=== PATIENT | male | born 1950 | race Caucasian/White ===

== ENCOUNTER 2021-07-11 01:36 | Day surgery (SDC) | payer OTHER, SELFPAY ==
[2021-07-04 14:44] VITALS: BMI 31.4
[2021-07-11 08:55] VITALS: BP 155/80; PULSE 56; RESP 18; TEMP 35.9; O2SAT 98; BMI 31.1
[2021-07-11] MEDS: LACTATED RINGERS 1,000 ML 150 ML IV CONT (09:20)
[2021-07-11 09:25] LABS: Glucose Point of Care 139 mg/dl (65-105)
--- NOTE | 2021-07-11 09:42 | P.CONGI_ITS ---
Assessment and Plan Assessment and plan (1) History of colon polyps: Code(s): Z86.010 - Personal history of colonic polyps Status: Acute Assessment and Plan: Patient has a prior history of colon polyps for this reason screening follow- up colonoscopy in been advised 5 year intervals. Further recommendations will be given after endoscopy. GI Consult Note Consult date/time: 07/11/21 09:42 HPI: Thomas Acuña is a 71 year old male Presents for screening colonoscopy. Patient has a prior history of colon polyps. He states his current weight appetite bowel movements are normal. Patient denies abdominal pain. He has had no bleeding. Family history is noncontributory. Review of Systems Review of Systems: All systems reviewed & are unremarkable except as noted in HPI and below PMFSH Social History Social History Smoking packs per day: 2 Smoking cigarettes per day: 40.0 Years smoked: 10 Smoking pack-years: 20.00 Smoking status: Former smoker Tobacco type: cigarettes Alcohol intake: current Drinks per week: 30 Alcohol use details: 4 drinks nightly; martini Substance use: never Substance use type: does not use Living arrangements: with family Gender identity (if verbalized by the patient): Male Sexual Orientation (if Verbalized by the Patient): Straight or Heterosexual Spiritual care concerns: No Meds Home Medications and Allergies Home Medications Medication Instructions Recorded Confirmed Type aspirin [Aspirin Low Dose] 162 mg PO DAILY 07/04/21 07/11/21 History atorvastatin 40 mg PO DAILY 07/04/21 07/11/21 History azelastine 137 mcg INTRANASAL BID 07/04/21 07/11/21 History fenofibrate nanocrystallized 145 mg PO DAILY 07/04/21 07/11/21 History glipizide 10 mg PO DAILY 07/04/21 07/11/21 History isosorbide mononitrate 30 mg PO DAILY 07/04/21 07/11/21 History losartan 25 mg PO DAILY 07/04/21 07/11/21 History metformin 1,000 mg PO DAILY 07/04/21 07/11/21 History sertraline 25 mg PO DAILY 07/04/21 07/11/21 History Allergies Allergy/AdvReac Type Severity Reaction Status Date / Time No Known Allergies Allergy Verified 07/11/21 09:03 Vital Signs Vital Signs - 24 hr 07/11/21 08:55 Temperature 96.6 F L Pulse Rate 56 L Respiratory Rate 18 Blood Pressure 155/80 H Pulse Oximetry 98 Exam Narrative: Physical exam reveals patient to be alert. Vital signs are stable. HEENT exam is unremarkable. Patient is anicteric. Lungs are clear to auscultation and percussion. Heart is without murmur or extra sounds. Abdominal exam bowel sounds are present soft nontender with no organomegaly. Digital external rectal exam is normal.
--- NOTE | 2021-07-11 09:42 | WPDANESEPPF ---
Anes - Initial Pre Proc Eval Procedure: Operation Date: 07/11/21 10:00 Proposed Procedures p Screening Colonoscopy - Sorin Zuniga MD Date/Time: 07/11/21 09:42 Surgeon: Sorin Zuniga MD Pre Op Diagnosis: hx of colon polyps Patient Data Age: 71 Gender: M Height: 1.8 m Weight: 101.3 kg Last Vital Signs Temp 96.6 F L 07/11/21 08:55 Pulse 56 L 07/11/21 08:55 Resp 18 07/11/21 08:55 BP 155/80 H 07/11/21 08:55 Pulse Ox 98 07/11/21 08:55 Allergies Allergy/AdvReac Type Severity Reaction Status Date / Time No Known Allergies Allergy Verified 07/11/21 09:03 Home Medications Medication Instructions Recorded Confirmed Type aspirin [Aspirin Low Dose] 162 mg PO DAILY 07/04/21 07/11/21 History atorvastatin 40 mg PO DAILY 07/04/21 07/11/21 History azelastine 137 mcg INTRANASAL BID 07/04/21 07/11/21 History fenofibrate nanocrystallized 145 mg PO DAILY 07/04/21 07/11/21 History glipizide 10 mg PO DAILY 07/04/21 07/11/21 History isosorbide mononitrate 30 mg PO DAILY 07/04/21 07/11/21 History losartan 25 mg PO DAILY 07/04/21 07/11/21 History metformin 1,000 mg PO DAILY 07/04/21 07/11/21 History sertraline 25 mg PO DAILY 07/04/21 07/11/21 History Laboratory Tests 07/11/21 09:09 POC Capillary Glucose 139 mg/dl H mg/dl (65-105) Patient hx anesthesia problems: none Family hx anesthesia problems: none PMFSH Social History Social History Smoking packs per day: 2 Smoking cigarettes per day: 40.0 Years smoked: 10 Smoking pack-years: 20.00 Smoking status: Former smoker Tobacco type: cigarettes Alcohol intake: current Drinks per week: 30 Alcohol use details: 4 drinks nightly; martini Substance use: never Substance use type: does not use Living arrangements: with family Gender identity (if verbalized by the patient): Male Sexual Orientation (if Verbalized by the Patient): Straight or Heterosexual Spiritual care concerns: No Anes - Eval Final PreProcedure Day of Procedure 08/27/21 09:42 Patient weight: overweight Heart: regular rate and rhythm Lungs: clear to auscultation Airway: Mallampati scale class III Neurological: alert and oriented Last oral intake: >/= 8 hours ASA classification: III Emergent: no Anesthetic plan: proceed Anesthesia type and monitoring: general GIVS and standard monitoring Informed Consent: The patient's anesthetic plan and its attendant risks and benefits were discussed with the patient/family/POA. Questions were solicited and answers provided to the satisfaction of the patient/family/POA.
[2021-07-11 10:06] VITALS: BP 89/45; PULSE 55; RESP 14; O2SAT 99
[2021-07-11 10:16] VITALS: BP 113/61; PULSE 54; RESP 18; O2SAT 100
[2021-07-11 10:36] VITALS: BP 136/70; PULSE 53; RESP 17; O2SAT 99
== END 2021-07-11 10:37 | disposition home or self-care (01) ==
PROVIDERS: PCP Emergency Medicine; Visit Provider Internal Medicine Gastroenterology
PROC: 0DJD8ZZ Inspection of Lower Intestinal Tract, Via Natural or Artificial Opening Endoscopic (ICD-10-PCS; CPT 45378; principal; 2021-07-11 10:00)
DX: Z12.11 Encounter for screening for malignant neoplasm of colon (principal); K57.30 Diverticulosis of large intestine without perforation or abscess without bleeding; K64.8 Other hemorrhoids; Z86.010 Personal history of colon polyps; Z87.891 Personal history of nicotine dependence; Z79.899 Other long term (current) drug therapy
CPT/HCPCS: G0105; 82948; J2704; J7120

== ENCOUNTER 2023-05-10 16:01 | Emergency (ER) | payer OTHER, SELFPAY ==
--- NOTE | ~2023-05-10 | XR_ITS ---
EXAM: XR knee LT min 4V DATE: 05/10/2023 17:52 HISTORY: pain in knee, no injury . COMPARISON: None available. FINDINGS: Normal mineralization. No fracture or dislocation. No lytic or blastic lesion. 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 No erosion or periosteal change. Large volume left knee joint fluid. IMPRESSION: No acute osseous finding in the left knee. Large left knee joint effusion. Reviewed, dictated and finalized at location K. IMPRESSION: No acute osseous finding in the left knee. Large left knee joint ef fusion.
[2023-05-10 16:41] VITALS: BP 129/71; PULSE 72; RESP 18; TEMP 36.9; O2SAT 99
--- NOTE | 2023-05-10 16:55 | ED.LOWEXIN ---
HPI - Extremity Injury (Lower) General Chief Complaint: Extremity Injury, Lower Stated Complaint: lt pain Time Seen by Provider: 05/10/23 16:55 Source: patient Mode of arrival: ambulatory Limitations: no limitations History of Present Illness HPI Narrative: Patient is a 72-year-old male who presents with left knee pain after stepping and mole hole in the yard this morning at 10:30 a.m.. Patient states he felt a pop and immediate pain. Patient has been able to continue working and standing on knee. Patient has not been able to elevate, ice, wrap or take anything for pain. Patient states it hurts to bear weight and to straighten leg completely. Patient reports swelling to knee. Denies any numbness tingling to foot. Related Data Home Medications Medication Instructions Recorded Confirmed aspirin 81 mg tablet,delayed 162 mg PO DAILY 07/04/21 05/10/23 release (Trang Low Dose Aspirin) atorvastatin 40 mg tablet 40 mg PO DAILY 07/04/21 05/10/23 azelastine 137 mcg (0.1 %) nasal 137 mcg intranasal BID 07/04/21 05/10/23 spray aerosol fenofibrate nanocrystallized 145 145 mg PO DAILY 07/04/21 05/10/23 mg tablet glipizide 10 mg tablet, extended 10 mg PO DAILY 07/04/21 05/10/23 release 24 hr isosorbide mononitrate 30 mg 30 mg PO DAILY 07/04/21 05/10/23 tablet,extended release 24 hr losartan 25 mg tablet 25 mg PO DAILY 07/04/21 05/10/23 metformin 1,000 mg tablet 1,000 mg PO BID 07/04/21 05/10/23 sertraline 25 mg tablet 25 mg PO DAILY 07/04/21 05/10/23 empagliflozin 10 mg tablet 10 mg PO DAILY 05/10/23 05/10/23 (Jardiance) fexofenadine 180 mg tablet 180 mg PO DAILY 05/10/23 05/10/23 Allergies Allergy/AdvReac Type Severity Reaction Status Date / Time No Known Allergies Allergy Verified 05/10/23 16:57 Review of Systems Review of Systems: All systems reviewed & are unremarkable except as noted in HPI and below Constitutional: Constitutional: Denies body ache(s), Denies chills, Denies fatigue, Denies fever(s), Denies headache(s), Denies malaise and Denies weakness Eyes: Eyes: Denies blurry vision, Denies irritation and Denies loss of vision ENT: Denies otalgia, Denies headache(s), Denies nasal discharge, Denies sinus pain and Denies sore throat Cardiovascular: Cardiovascular: Denies chest pain, Denies irregular heart rhythm and Denies dyspnea Respiratory: Respiratory: Denies dyspnea Gastrointestinal: Gastrointestinal: Denies abdominal pain, Denies melena, Denies hematochezia, Denies diarrhea, Denies nausea and Denies vomiting Musculoskeletal: Musculoskeletal: Denies back pain, Denies myalgias, Reports arthralgias and Reports joint swelling Integumentary/Breasts: Skin/Breast: Denies pruritus and Denies rash Neurologic: Denies headache(s), Denies loss of vision and Denies weakness Psychiatric: Psychiatric: Reports no additional psychiatric complaints Endocrine: Endocrine: Denies fatigue [facility] Family History Family History (System 08/08/21 @ 16:15 by Waqas Cabrera) Father Patient's father is in good health Sibling Patient's sister is in good health Patient's brother is in good health Mother Family history of malignant neoplasm Patient's mother is Social History Social History (System 08/08/21 @ 16:15 by Waqas Cabrera) Smoking packs per day: 2 Smoking cigarettes per day: 40.0 Years smoked: 10 Smoking pack-years: 20.00 Smoking status: Former smoker Tobacco type: cigarettes Smoking end date: 11/15/89 Alcohol intake: current Drinks per week: 30 Alcohol use details: 4 drinks nightly; martini Substance use: never Substance use type: does not use Living arrangements: with family Gender identity (if verbalized by the patient): Male Sexual Orientation (if Verbalized by the Patient): Straight or Heterosexual Spiritual care concerns: No Comments At time of signature, agree with nursing past medical, surgical, social and family history. There is no relev
== END 2023-05-10 18:12 | disposition home or self-care (01) ==
PROVIDERS: Emergency Provider Nurse Practitioner Family; PCP Family Medicine
DX: M25.462 Effusion, left knee (principal); S83.92XA Sprain of unspecified site of left knee, initial encounter; W17.2XXA Fall into hole, initial encounter; Z87.891 Personal history of nicotine dependence; E78.00 Pure hypercholesterolemia, unspecified; I10 Essential (primary) hypertension; I25.10 Atherosclerotic heart disease of native coronary artery without angina pectoris; Z95.5 Presence of coronary angioplasty implant and graft; I25.2 Old myocardial infarction
CPT/HCPCS: 73564; 99213; G0463

== ENCOUNTER 2025-10-31 13:00 | Outpatient (CLI) | payer OTHER, SELFPAY ==
--- NOTE | 2025-10-31 13:40 | NEURO_ITS ---
Impression: # Complains of numbness of hands. ? # Bilateral Carpal Tunnel Syndrome of severe degree, left more than right. ? # Underlying mild axonal Neuropathy. Nerve Conduction Studies ?Stim Site NR Peak (ms) P-T Amp (?V) Site1 Site2 Delta-P (ms) Dist (cm) Kj (m/s) Left Median Anti Sensory (2-3nd Digit)??? NO RESPONSE Wrist NR Wrist 2-3nd Digit 14.0 Wrist NR Wrist 2-3nd Digit 14.0 Right Median Anti Sensory (2-3nd Digit) Wrist ? 7.0 7.3 Wrist 2-3nd Digit 7.0 14.0 20 Wrist ? 7.3 8.1 Wrist 2-3nd Digit 7.0 14.0 20 Left Radial Anti Sensory (Base 1st Digit) Wrist ? 2.5 5.1 Wrist Base 1st Digit 2.5 0.0 Right Radial Anti Sensory (Base 1st Digit) Wrist ? 2.8 5.8 Wrist Base 1st Digit 2.8 0.0 Left Ulnar Anti Sensory (5th Digit) Wrist ? 3.6 4.1 Wrist 5th Digit 3.6 14.0 39 Right Ulnar Anti Sensory (5th Digit) Wrist ? 3.4 15.9 Wrist 5th Digit 3.4 14.0 41 ?Stim Site NR Onset (ms) O-P Amp (mV) Site1 Site2 Delta-0 (ms) Dist (cm) Kj (m/s) Left Median Motor (Abd Poll Brev) Wrist ? 6.6 1.7 Elbow Wrist 7.2 29.0 40 Elbow ? 13.8 1.2 Right Median Motor (Abd Poll Brev) Wrist ? 6.0 3.1 Elbow Wrist 6.9 31.0 45 Elbow ? 12.9 2.4 Left Ulnar Motor (Abd Dig Minimi) Wrist ? 3.3 1.6 A Elbow Wrist 7.2 33.0 46 A Elbow ? 10.5 0.2 B Elbow Wrist 5.5 25.0 45 B Elbow ? 8.8 0.4 Right Ulnar Motor (Abd Dig Minimi) Wrist ? 3.8 5.1 A Elbow Wrist 7.7 32.0 42 A Elbow ? 11.5 4.1 B Elbow Wrist 5.9 24.0 41 B Elbow ? 9.7 2.8 F Wave Studies ?NR F-Lat (ms) L-R F-Lat (ms) Left Median (Mrkrs) (Abd Poll Brev) ? 36.51 13.45 Right Median (Mrkrs) (Abd Poll Brev) ? 23.06 13.45 Left Ulnar (Mrkrs) (Abd Dig Min) ? 37.03 1.12 Right Ulnar (Mrkrs) (Abd Dig Min) ? 35.91 1.12 Electromyography ?Side Muscle Nerve Root Ins Act Fibs Amp Dur Recrt Comment Right 1stDorInt Ulnar C8-T1 Nml Nml Nml Nml Nml Left 1stDorInt Ulnar C8-T1 Nml Nml Nml Nml Nml Right ABD Dig Min Ulnar C8-T1 Nml Nml Nml Nml Nml Left ABD Dig Min Ulnar C8-T1 Nml Nml Nml Nml Nml Left Abd Poll Brev Median C8-T1 Nml Nml Decr >12ms +1 Right Abd Poll Brev Median C8-T1 Nml Nml Decr >12ms +1 Right Abd Poll Long Radial (Post Int) C7-8 Nml Nml Nml Nml Nml Left Abd Poll Long Radial (Post Int) C7-8 Nml Nml Nml Nml Nml Left BrachioRad Radial C5-6 Nml Nml Nml Nml Nml Right BrachioRad Radial C5-6 Nml Nml Nml Nml Nml Right Ext Digitorum Radial (Post Int) C7-8 Nml Nml Nml Nml Nml Left Ext Digitorum Radial (Post Int) C7-8 Nml Nml Nml Nml Nml Left Ext Indicis Radial (Post Int) C7-8 Nml Nml Nml Nml Nml Right Ext Indicis Radial (Post Int) C7-8 Nml Nml Nml Nml Nml Left FlexPolLong Median (Ant Int) C7-8 Nml Nml Nml Nml Nml Right FlexPolLong Median (Ant Int) C7-8 Nml Nml Nml Nml Nml Right PronatorTeres Median C6-7 Nml Nml Nml Nml Nml Left PronatorTeres Median C6-7 Nml Nml Nml Nml Nml
--- OUTSIDE RECORDS SUMMARY | 2025-10-31 14:57 | XMS_ITS | Clinical Summary ---
Author Organization [facility] Address [facility] [place] [address] Care Team Providers Care Water Taxi Operator Name Role Phone Jay Livingston MD Unavailable Sorin Goode OD Unavailable [phone] Sorin Zuniga MD Unavailable [phone] Thomas Cota MD Primary Care Provider [phone] Allergies No known active allergies Medications ASPIRIN 81 OR Take 1 tablet by mouth daily. 01/22/20 16 Active furosemide (LASIX) 20 MG tablet Take 1 tablet (20 mg total) by mouth daily. 30 tablet 10/12/20 23 Active Blood Glucose Monitoring Suppl (ONE TOUCH ULTRA 2) w/Device KitIndications:Di abetes mellitus ([facility]) Use to check blood sugar once per day 1 kit 11/28/19 25 Active montelukast (SINGULAIR) 10 MG tabletIndications :Allergy, subsequent encounter,Seasona l allergies TAKE 1 TABLET BY MOUTH EVERYDAY AT BEDTIME 90 tablet 1 05/25/20 25 Active metFORMIN (GLUCOPHAGE) 1000 MG tabletIndications :Type 2 diabetes mellitus with hyperglycemia, without long-term current use of insulin ([facility]) TAKE 1 TABLET BY MOUTH TWICE A DAY WITH MEALS 180 tablet 1 06/04/20 25 Active sertraline (ZOLOFT) 25 MG tabletIndications :Mild episode of recurrent major depressive disorder TAKE 1 TABLET BY MOUTH EVERY DAY IN THE MORNING 90 tablet 1 06/18/20 25 Active fenofibrate (TRICOR) 145 MG tabletIndications :Mixed hyperlipidemia TAKE 1 TABLET BY MOUTH EVERY DAY 90 tablet 1 06/22/20 25 Active atorvastatin (LIPITOR) 80 MG tabletIndications :Mixed hyperlipidemia TAKE 1/2 TABLET BY MOUTH NIGHTLY AT BEDTIME 45 tablet 1 06/22/20 25 Active fexofenadine (GENIA) 180 MG tabletIndications :Seasonal allergies TAKE 1 TABLET BY MOUTH EVERY DAY 90 tablet 1 07/26/20 25 Active empagliflozin (JARDIANCE) 25 MG tabletIndications :Type 2 diabetes mellitus with hyperglycemia, without long-term current use of insulin ([facility]) Take 1 tablet (25 mg total) by mouth daily. 90 tablet 1 07/30/20 25 Active traMADol (ULTRAM) 50 MG tablet Take 1 tablet (50 mg total) by mouth every 6 (six) hours as needed for Pain. Active Lancets MiscIndications:D iabetes mellitus ([facility]) Use to check blood sugar once per day 100 each 1 08/20/20 25 Active nitroglycerin (NITROSTAT) 0.[address] ONE TABLET UNDER TONGUE EVERY FIVE MINS NEEDED FOR CHEST PAIN. MAX 3 DOSES, THEN CALL 911 75 tablet 1 08/23/20 25 Active losartan (COZAAR) 25 MG tablet TAKE 1 TABLET BY MOUTH EVERY DAY 90 tablet 1 08/31/20 25 Active ONETOUCH ULTRA test stripIndications: Type 2 diabetes mellitus with hyperglycemia, without long-term current use of insulin ([facility]) USE TO CHECK BLOOD SUGAR ONCE PER DAY 100 strip 1 09/10/20 25 Active glipiZIDE XL (GLUCOTROL XL) 10 MG 24 hr tabletIndications :Type 2 diabetes mellitus with hyperglycemia, without long-term current use of insulin ([facility]) TAKE 1 TABLET BY MOUTH DAILY WITH BREAKFAST (DO NOT BREAK OR CRUSH TABLET) 90 tablet 1 09/19/20 25 Active isosorbide mononitrate ER (IMDUR) 30 MG 24 hr tabletIndications :Atherosclerotic heart disease of north fork coronary artery without angina pectoris TAKE 1 TABLET BY MOUTH 2 TIMES A DAY. 180 tablet 2 09/19/20 25 Active HYDROcodone-aceta minophen (NORCO) 5-325 MG tabletIndications :Acute Pain < 7 Day Supply Take 1 tablet by mouth every 6 (six) hours as needed for Pain. Indications: Acute Pain < 7 Day Supply 28 tablet 10/24/20 25 Active azelastine 0.1 % nasal sprayIndications: Seasonal allergies SPRAY 1 SPRAY INTO EACH NOSTRIL 2 (TWO) TIMES DAILY DIRECTED 90 mL 1 10/24/20 25 Active azelastine 0.1 % nasal sprayIndications: Seasonal allergies SPRAY 1 SPRAY INTO EACH NOSTRIL 2 (TWO) TIMES DAILY DIRECTED 30 mL 1 10/01/20 25 2024 Discontinued HYDROcodone-aceta minophen (NORCO) 5-325 MG tabletIndications :Acute Pain < 7 Day Supply Take 1 tablet by mouth every 6 (six) hours as needed for Pain. Indications: Acute Pain < 7 Day Supply 28 tablet 10/22/20 25 2024 Discontinued(R eorder) Active Problems Problem Noted Date Diagnosed Date Anxiety state 05/28/2025 Cataract 05/28/2025 Malignant neoplasm of skin 05/28/2025 Postsurgical percutaneous tr ansluminal coronary angioplasty status 05/28/2025 Vitamin D deficiency 05/28/2025 Impingement syndrome of right shoulder Assessment & Plan (09/13/2022 3:46 PM CDT): We discussed the risks benefits and alternatives. All questions are answered. Continue with formal physical therapy. Steroid injected today. Patient does have an MRI that has already been ordered. If no significant improvement with the steroid injection we can certainly get the MRI. We discussed the risks at 72 years old if he did have a rotator cuff tear and wanted to proceed with surgical intervention. Patient states that he is very active and wants to continue. Follow-up in 6 weeks if no improvement. Shoulder pain, right 08/26/2022 Mild episode of recurrent major depressive disor diogo 02/22/2019 Assessment & Plan (02/22/2019 8:12 PM CDT): Doing well on present dosing of sertraline. Continue current treatment, reevaluate at follow-up. Coronary artery disease invo lving north fork coronary artery of north fork heart without angina pectoris 01/15/2019 Assessment & Plan (09/13/2022 3:44 PM CDT): Therefore we would like to avoid nonsteroidal anti-inflammatories Assessment & Plan (02/22/2019 8:06 PM CDT): Patient pleased with new cardiovascular provider. Presently without any chest discomfort or anginal symptoms. Regular follow-up scheduled. No change to present treatment. Mixed hyperlipidemia 03/04/2018 Assessment & Plan (02/22/2019 8:11 PM CDT): Check fasting lipid profile today, patient tolerating current dosing of atorvastatin and fenofibrate, adjust accordingly. Arthritis of low back 02/22/2018 Class 1 obesity due to exces s calories with serious comorbidity and body mass index (BMI) of 33.0 to 33.9 in adult 02/22/2018 Type 2 diabetes mellitus wit h hyperglycemia, without long-term current use of insulin 02/22/2018 Overview (11/22/2018): Transitioned From: Diabetes mellitus, type II Assessment & Plan (09/13/2022 3:45 PM CDT): Does realize that his blood sugars will elevate for a day or 2 after a steroid injection Assessment & Plan (02/22/2019 8:11 PM CDT): Improved diabetic control on current as well as exercise routine. Encourage patient to persist with this, as he is in a good range at this time. Recheck hemoglobin A1c in 6 months. Will obtain diabetic foot exam with next visit, as well as urine microalbumin. Patient given routine eye exam screening for diabetic retinopathy in the next month. Referral placed. Essential hypertension 02/22/2018 Assessment & Plan (02/22/2019 8:13 PM CDT): Borderline controlled. 1) Medication: continue current medication regimen unchanged, encouraged home monitoring, call for persistent elevations at or above 130/85. 2) Regular aerobic exercise 3) Recheck in 6 months, sooner should new symptoms or problems arise. Seasonal allergies 02/22/2018 Assessment & Plan (02/22/2019 8:12 PM CDT): Symptoms suspicious for vasomotor rhinitis-patient has a history of rhinitis medicamentosa with chronic use of Afrin remotely. Will trial Atrovent nasal spray to see if he gets improvement. He has used [id number] nasal corticosteroid sprays without success. Lumbar stenosis 01/02/2015 Resolved Problems Problem Noted Date Diagnosed Date Resolved Date Acute left-sided low back pa in with left-sided sciatica 10/17/2020 04/01/2021 Bradycardia 06/14/2019 04/13/2020 Need for pneumococcal vaccine 05/31/2018 11/22/2018 Arteriosclerotic cardiovascular disease 02/22/2018 05/08/2019 Overview (11/22/2018): Description: Юлия Mcarthur MD - q6m follow-ups Assessment & Plan (02/22/2019 8:07 PM CDT): See coronary artery disease, above. Medication management 02/22/20182021 Assessment & Plan (02/22/2019 8:13 PM CDT): Stable, lab work reviewed from November, for repeat testing in 3 months. Wears reading eyeglasses 02/22/2018 Myositis 10/28/2016 04/01/2021 Overview (11/22/2018): Overview: Simvastatin-induced myositis Edema of lower extremity 01/22/2016 Overview (11/22/2018): Overview: Bilateral lower extremity edema Presence of stent in coronary artery 01/22/2016 09/14/2023 Overview (04/01/2021): Overview: H/O heart artery stent H/O heart artery stent Lumbar disc herniation 01/02/201504/01 Encounters Date Type Department Care Team Description 10/31/2025 Daljit Message Enc [facility] Family & Internal Medicine [address] [address] Daljit [facility] Provider Completion of Needed Lab 10/31/2025 Patient Outreach [facility] Family & Internal [address] [phone] Lyndsay Montaño MA Other ([facility]) 10/21/2025 MyChart Message Enc [facility] Internal [address] [phone] Thomas Cota MD Update 09/04/2025 Scan MG HEALTH INFO SRVCS Scanned, Doc [facility] 08/15/2025 Scan MG HEALTH INFO SRVCS Scanned, Doc Med Group 08/13/2025 12:32 PM CDT - 08/13/2025 11:59 PM CDT Hospital Encounter [facility] Laboratory [address] [place], [place] [phone] Thomas Cota MD Discharge Disposition: Home or Self Care (Routine Discharge) 08/13/2025 7:30 AM CDT Laboratory Only [facility] Internal [address] [phone] Thomas Cota MD 08/13/2025 Results Follow-Up [facility] Internal [address] [phone] Thomsa Cota MD HEMOGLOBIN, GLYCOSYLATED 08/13/2025 Travel 08/07/2025 8:45 AM CDT Office Visit [facility], [address] [address] Raiza Hayes, ANP- Coronary Artery Disease 08/07/2025 MyChart Message Enc [facility] Internal [address] [phone] Daljit [facility] Provider lab appointment 08/07/2025 Travel from Last 3 Months Immunizations Immunization Administration Dates Next Due Fluzone High Dose (IIV, trivalent, 0.5mL) 2024,08/17/2024 Fluzone High Dose - >Age 65 (Prefilled Syringe) 10/02/2021,10/02/2020 Influenza Adult (Generic) 08/11/2023,09/14/2022 PFIZER COVID-19 (ORIGINAL FO RMULATION, PURPLE CAP) mRNA, LNP-S, PF, 30 MCG/0.3 ML DOSE 01/28/2021,01/07/2021 PFIZER COVID-19 BIVALENT (12 +) mRNA, LNP-S, PF, 30 MCG/0.3 ML DOSE 09/14/2022 Pneumococcal (Generic) 06/18/2008 Pneumococcal (Pneumovax 23) 08/29/2019, 8 Pneumococcal (Prevnar 13) 10/15/2015 Pneumococcal (Prevnar 20) 08/11/2023 Shingrix 07/09/2025,05/10/2025 Td, Adsorbed, Preservative F ree, Adult Use, Lf Unspecified 03/22/2007 Tdap (Generic) 05/10/2025 Family History Medical History Relation Comments CABG Father Stroke Maternal Grandfather No Known Problems Maternal Grandmother No Known Problems Mother No Known Problems Paternal Grandfather Heart Attack Paternal Grandmother Heart Sister 1 heart stent No Known Problems Sister 2 No Known Problems Sister 3 No Known Problems Sister 4 Relation Status Comments Father (Age 92) Maternal Grandfather (Age 63) Maternal Grandmother (Age 93) Mother (Age 90) Paternal Grandfather (Age 93) Paternal Grandmother (Age 63) Sister 1 Alive Sister 2 Alive Sister 3 Alive Sister 4 Alive Social History Tobacco Use Types Packs/Day Years Used Date Smoking Tobacco: Former Cigarettes 1.5 15 0 11/15/1970 - 11/15/1985 Pipe Cigars Passive Smoke Exposure: Past Smokeless Tobacco: Never Tobacco Cessation:Counseling Given: No Comments:Former, Quit 1985 Alcohol Use Standard Drinks/Week Comments Yes 0 (1 standard drink = 0.6 oz pure alcohol) drinks daily, mixed drinks and wine AUDIT-C Answer Date Recorded Frequency of Alcohol Consumption 4 or more times a week 01/03/2019 Average Number of Drinks Not on file 019 Frequency of Binge Drinking Not on file 12/16 PHQ-2 Answer Date Recorded Patient Health Questionnaire-2 Score 0 04/08/2023 Education Answer Date Recorded What is the highest level of school you have completed or the highest degree you have received? Bachelor's degree (e.g., BA, AB, BS) 11/22/2018 Sex and Gender Information Value Date Recorded Sex Assigned at Male 01/30/2025 10:20 AM CDT Legal Sex Male 8:41 PM CDT Gender Identity Male 05/28/2025 8:36 AM CDT Sexual Orientation Not on file Occupation Industry Job Start Date Job End Date Not on file Not on file Not on file Not on file Last Filed Vital Signs Vital Sign Reading Time Taken Comments Blood Pressure 138/78 08/07/2025 8:38 AM CDT Pulse 68 08/07/2025 8:38 AM CDT Temperature 36.3 C (97.3 F) 05/28/2025 8:33 AM CDT Respiratory Rate 16 05/28/2025 8:33 AM CDT Oxygen Saturation 99% 08/07/2025 8:38 AM CDT Inhaled Oxygen Concentration - - Weight 95.7 kg (211 lb) 08/07/2025 8:38 AM CDT Height 177.8 cm (5' 10) 08/07/2025 8:38 AM CDT Body Mass Index 30.28 08/07/2025 8:38 AM CDT Plan of Treatment Upcoming Encounters Date Type Department Care Team (Late st Contact Info) Description 11/29/2025 9:20 AM PLANT ENGINEER Office Visit [facility] Family & Internal Medicine [address] [phone] Thomas Cota MD [address] [place] [address] 02/19/2026 9:45 AM CDT Office Visit [facility], [facility] [address] [place], [place] [address] Jay Livingston MD [facility]. [facility] [address] [place], [place] [phone] Health Maintenance Due Date Last Done Comments Kidney Health Evaluation 1950 Annual Medicare Wellness Visit 2013 RSV Immunization or 60+ Years (1 - 1-dose 75+ series) 2023 PHQ-2 (Physician [place]) 11/15/2024 Lipid Panel 11/27/2025 11/27/2024, 09/16, 10/05/2022, Additional history exists Hemoglobin A1C 02/10/2026 08/13/2025, 05/15, 11/27/2024, Additional history exists COVID-19 Vaccine ( season) 2026 08/15/2025, 08/17/2024, 08/26/2023, Additional history exists Diabetes: Retinopathy Eye Exam 06/22/2026 06/22/2025, 12/15/2022, 07/04/2021, Additional history exists DTaP, Tdap and Td Vaccines (2 - Td or Tdap) 05/10/2035 05/10/2025, 03/22/2007 Hepatitis C Completed 08/29/2019 Colorectal Cancer Screening Colonoscopy (10 Years) Discontinued 07/11/2021, 11/15/2014, 08/25/2013 Pneumococcal Vaccine: 50+ Years Completed 08/11/2023, 08/29/2019, 05/31/2018, Additional history exists Zoster Vaccines Completed 07/09/2025, 05/10/2025 Influenza Adult Completed 08/15/2025, 01/2024, 08/11/2023, Additional history exists Hepatitis A Vaccines Aged Out No long er eligible based on patient's age to complete this topic Meningococcal B Vaccine Aged Out No l onger eligible based on patient's age to complete this topic Meningococcal Vaccine Aged Out No sara vernon eligible based on patient's age to complete this topic RSV Immunizations Under 20 Months Aged Out No longer eligible based on patient's age to complete this topic Procedures Procedure Name Priority Date/Time Associated Diagnosis Comments COLLECTION VENOUS BLOOD VENIPUNCTURE Routine 08/13/2025 7:38 AM CDT Type 2 diabetes mellitus with hyperglycemia, without long-term current use of insulin ([facility]) HC HEMOGLOBIN FRACT QN Routine 08/13/2025 7:34 AM CDT Type 2 diabetes mellitus with hyperglycemia, without long-term current use of insulin ([facility] HHS/HCC) DIABETIC RETINOPATHY EXAM (NEGATIVE)(SCAN ORDER) Routine 06/22/2025 LIPID PANEL Routine 11/27/2024 11:00 AM PLANT ENGINEER Mixed hyperlipidemia COLONOSCOPY GENERIC (SCAN ORDER) 07/11/2021 HEPATITIS C ANTIBODY Routine 08/29/2019 8:45 AM CDT Need for hepatitis C screening test from Last 3 Months or Most Recently Relevant to Health Maintenance Results * (ABNORMAL) HEMOGLOBIN, GLYCOSYLATED (08/13/2025 7:34 AM CDT) HGB A1C 7.1(H) <5.7 % 08/13/2025 1:14 PM CDT [facility] Comment: INCREASED RISK OF DIABETES <5.7% NON-DIABETES 5.7-6.4% INCREASED RISK FOR FUTURE DIABETES > OR = 6.5 CONSISTENT WITH DIABETES STANDARDS OF MEDICAL CARE IN DIABETES-2010 DIABETES CARE, 33(SUPP 1): S1-S61,2010 ESTIMATED AVG GLUCOSE 157 mg/dL 08/13/2025 1:14 PM CDT [facility] 08/13/2025 7:34 AM CDT Thomas Cota MD LABORATORY Final Resul t Performing Organization Address City/[facility]/ZIP Co de Phone Number [facility] [address] [place] [address], * DIABETIC RETINOPATHY EXAM (NEGATIVE) (06/22/2025) us [facility] Scanned SCANNING Final Resu lt [facility] ONBASE * LIPID PANEL (11/27/2024 11:00 AM PLANT ENGINEER) CHOLESTEROL 142 <200.0 MG/DL 11/27/2024 2:05 PM PLANT ENGINEER [facility] TRIGLYCERIDES 47 <150 MG/DL 11/27/2024 2:05 PM [facility] HDL 73 >40.0 MG/DL 11/27/2024 2:05 PM [facility] LDL (CALCULATED) 60 <100 MG/DL 11/27/19 25 2:05 PM [facility] NON HDL CHOLESTEROL 69 <130 MG/DL 11/27 2:05 PM [facility] CHOL/HDL RATIO 1.9 0.0 - 4.5 11/27/2024 2:05 PM [facility] VLDL CALCULATION 9 5 - 55 MG/DL 11/27/2024 2:05 PM [facility] LIPID INTERPRETATION 11/27/2024 2:05 PM [facility] Comment: NIH CONCENSUS REPORT RECOMMENDATIONS: ADULT CHILD LOW RISK: CHOLESTEROL <200 <170 TRIGLYCERIDE <150 --- HDL >=60 --- LDL <100 <110 BORDERLINE: CHOLESTEROL 200-239 170-199 TRIGLYCERIDE 150-199 --- HDL 40-59 --- LDL 100-159 110-129 HIGH RISK: CHOLESTEROL >=240 >=200 TRIGLYCERIDE >=200 --- HDL <40 --- LDL >=160 >=130 11/27/2024 11:0 0 AM PLANT ENGINEER us Thomas Cota MD LABORATORY Final Resul t [facility] [address] [place] [address], * COLONOSCOPY GENERIC (07/11/2021) 07/11/2021 Narrative 07/11/2021 Ordered by an unspecified provider. us Documents Scanned SCANNING Final Result * HEPATITIS C ANTIBODY (08/29/2019 8:45 AM CDT) HEPATITIS C AB NON-REACT KANU NON-REACT KANU [facility] SIGNAL TO CUTOFF 0.11 <1.00 [facility] Comment: HCV antibody was non-reactive. There is no laboratory evidence of HCV infection. In most cases, no further action is required. However, if recent HCV exposure is suspected, a test for HCV RNA (test code 84580) is suggested. For additional information please refer to http://education.[employer]/faq/JQS06n8 (This link is being provided for informational/ educational purposes only.) 08/29/2019 8:45 AM CDT 08/30/2019 5:14 AM CDT Narrative Resulting Agency Comment Performing Organization Information: Site ID: [id number] Name: [facility] Address: [address] [place] [address] [place] [address] Director: Mukesh Henriquez D.O., MPH Oneal Chance MD LABORATORY Final Res ult [facility] from Last 3 Months or Most Recently Relevant to Health Maintenance Insurance [facility] ESSENCE Care Teams Water Taxi Operator Relationship Specialty [place] [address] [place] [address] PCP - General FAMILY PRACTICE 12/04/21 Jay Livingston MD [facility] [address] [place] [address] [place] Terminologist INTERVENTIONAL CARDIOLOGY 12/22/18 Sorin Goode OD [address] [place] [address] Advanced Practice Provider Bag Presser 04/01/21 Sorin Zuniga MD [address] [place] [address] Consulting Physician GASTROENTEROLOGY 04/01/21
--- OUTSIDE RECORDS SUMMARY | 2025-10-31 14:57 | XMS_ITS | Encounter Summary ---
Author Organization [facility] Address [facility] [place] [address] Care Team Providers Care Deoiling Machine Operator Name Role Phone Oneal Chance MD Primary Care Provider [phone] Jay Livingston MD Unavailable Sorin Goode OD Unavailable [phone] Sorin Zuniga MD Unavailable [phone] Thomas Cota MD Primary Care Provider [phone] Encounter Details Date Type Department Care Team (Late st Contact Info) Description 04/01/2021 MyChart Message Enc [facility] Family & Internal Medicine [address] [phone] Oneal Chance MD [address] [address] RE:Glipizide in place of glyburide Social History Tobacco Use Types Packs/Day Years Used Date Smoking Tobacco: Former Cigarettes Q uit: 1985 Smokeless Tobacco: Never Alcohol Use Standard Drinks/Week Comments Yes 0 (1 standard drink = 0.6 oz pur e alcohol) AUDIT-C Answer Date Recorded Frequency of Alcohol Consumption 4 or more times a week 01/03/2019 Average Number of Drinks Not on file 019 Frequency of Binge Drinking Not on file 12/16 PHQ-2 Answer Date Recorded PHQ-2 Score - If the patient scores above 3, please move on to questions 3-9 0 04/01/2021 Education Answer Date Recorded What is the [...] file Not on file Not on file COVID-19 Exposure Response Date Recorded In the last month, have you been in contact with someone who was confirmed or suspected to have Coronavirus / COVID-19? No / Unsure 04/01/2021 7:47 AM CDT documented as of this encounter Plan of Treatment Upcoming Encounters Date Type Department Care Team (Late st Contact Info) Description 11/29/2025 9:20 AM ACTIVITY SPECIALIST Office Visit [facility] Medical Group Family & Internal Medicine [address] [phone] Thomas Cota MD [address] [place] [phone] 02/19/2026 9:45 AM CDT [facility] [address] [place], [place] [phone] Jay Livingston MD [facility] [address] [place], [place] [phone] documented as of this encounter Visit Diagnoses Not on filedocumented in this encounter Additional Health Concerns Assessment Noted Time PHQ-9 Depression Total Score: 0 09/25/20 20 2:50 PM ACTIVITY SPECIALIST documented as of this encounter Care Teams Deoiling Machine Operator Relationship Specialty Start Date End Date Oneal Chance MD PCP - General INTERNAL MEDICINE 11/22/18 12/03/21 [place] [address] [place] [address] PCP - General FAMILY PRACTICE 12/04/21 Jay Livingston MD [facility] [address] [place] [address] [place] [employer] Drain Pipe Layer INTERVENTIONAL CARDIOLOGY 12/22/18 Sorin Goode OD [address] [place] [address] Advanced Practice Provider Toggler 04/01/21 Sorin Zuniga MD [address] [place] [address] Consulting Physician GASTROENTEROLOGY 04/01/21 documented as of this encounter
--- OUTSIDE RECORDS SUMMARY | 2025-10-31 14:57 | XMS_ITS | Encounter Summary ---
Author Organization [facility] Address [address] [place] [address] Care Team Providers Care Environmental Quality Analyst Name Role Phone Jay Livingston MD Unavailable Sorin Goode OD Unavailable [phone] Sorin Zuniga MD Unavailable [phone] Thomas Cota MD Primary Care Provider [phone] Reason for Visit * Reason Onset Date Comments Other 10/31/2025 [facility] Encounter Details Date Type Department Care Team (Late st Contact Info) Description 10/31/2025 Patient Outreach [facility] Medical Group Family & Internal Medicine [address] [address] Lyndsay Montaño MA Other ([facility]) Social History Tobacco Use Types Packs/Day Years Used Date Smoking Tobacco: Former Cigarettes 1.5 15 0 11/15/1970 - 11/15/1985 Pipe Cigars Passive Smoke Exposure: Past Smokeless Tobacco: Never Comments:Former, Quit 1985 Alcohol Use Standard Drinks/Week [...] file Not on file Not on file documented as of this encounter Plan of Treatment Upcoming Encounters Date Type Department Care Team (Late st Contact Info) Description 11/29/2025 9:20 AM DETAIL TECHNICIAN Office Visit [facility] Medical Group Family & Internal Medicine [facility] [address] [place] [address] [place] [address] [place], [place] [id number] 02/19/2026 9:45 AM CDT Office Visit [facility], [facility] [address] [place] [address] Jay Livingston MD [facility]. [facility] [address] [place], [place] [address] Scheduled Orders Name Type Priority Associated Diagnoses Orde r Schedule ALBUMIN/CREATININE RATIO, RANDOM URINE Lab Routine Type 2 diabetes mellitus with hyperglycemia, without long-term current use of insulin ([facility]) Expected: 10/31/2025, Expires: 10/31/2026 documented as of this encounter Visit Diagnoses Diagnosis Type 2 diabetes mellitus with hyperglycemia, without long-term current use of insulin ([facility])- Primary documented in this encounter Additional Health Concerns Assessment Noted Time PHQ-9 Depression Total Score: 2 01/07/20 22 8:25 AM DETAIL TECHNICIAN documented as of this encounter Care Teams Environmental Quality Analyst Relationship Specialty [place] [address] [place] [address] PCP - General FAMILY PRACTICE 12/04/21 Jay Livingston MD [facility] [address] [place] [address] [place] [employer] Furniture Sales INTERVENTIONAL CARDIOLOGY 12/22/18 Sorin Goode OD [address] [place] [address] Advanced Practice Provider First Responder 04/01/21 Sorin Zuniga MD [address] [place] [address] Consulting Physician GASTROENTEROLOGY 04/01/21 documented as of this encounter
--- OUTSIDE RECORDS SUMMARY | 2025-10-31 14:57 | XMS_ITS | Clinical Summary ---
Author Organization [facility] [address] [facility] 162 Address [address] [facility] 162 [place] [address] Care Team Providers Care Elevator Attendant Name Role Phone Oneal Chance MD Primary Care Provider + Allergies No known active allergies Medications aspirin (ASPIR-81) 81 mg tablet take 1 Tablet by oral route every day 0 0 01/22/20 16 Active losartan (COZAAR) 50 mg tablet take 1 tablet by oral route every day 0 0 01/22/20 16 Active metFORMIN (GLUCOPHAGE) 1,000 mg tablet take 1 tablet by oral route 2 times every day with morning and evening meals 0 0 01/22/20 16 Active atorvastatin (LIPITOR) 40 mg tablet TAKE ONE TABLET BY MOUTH ONCE DAILY 90 tablet 3 12/01/19 18 Active fluticasone (FLONASE) 50 mcg/actuation nasal spray Administer 1 spray into each nostril daily. Active nitroglycerin (NITROSTAT) 0.[address] 1 tablet (0.4 mg total) under the tongue every 5 (five) minutes as needed for chest pain. 60 tablet 3 12/10/19 18 Active isosorbide mononitrate ER (IMDUR) 30 mg 24 hr tablet Take 1 tablet (30 mg total) by mouth daily. 30 tablet 11 01/29/20 18 Active MICROLET LANCET misc 0 18 Active CONTOUR NEXT STRIPS strip 03/01/20 18 Active glyBURIDE (DIABETA) 2.5 mg tablet Take 2.5 mg by mouth daily with breakfast. Active fenofibrate nanocrystallized (TRICOR,TRIGLIDE) 145 mg tablet Take 1 tablet (145 mg total) by mouth daily. 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 Presence of stent in coronary artery 01/22/2016 Overview (02/19/2017): H/O heart artery stent Coronary arteriosclerosis in [place] artery 01/21 Overview (02/19/2017): Coronary artery disease involving [place] coronary artery of [place] heart with unstable angina pectoris Edema of lower extremity 01/22/2016 Overview (02/19/2017): Bilateral lower extremity edema Family History Medical History Relation Name Comments Other Father 2 Alive and well; Other Mother 2 Unknown; Cause of : Unknown Relation Name Status Comments Father 1 Alive Father 2 Mother 1 (Age 90) Mother 2 Social History Tobacco Use Types Packs/Day Years Used Date Smoking Tobacco: Former Smokeless Tobacco: Never Alcohol Use Standard Drinks/Week Comments Yes 7 (1 standard drink = 0.6 oz pur e alcohol) Sex and Gender Information Value Date Recorded Sex Assigned at Not on file Legal Sex Male 3:18 AM DIRECTOR OF QUANTITATIVE RESEARCH Gender Identity Not on file Sexual Orientation Not on file Last Filed Vital Signs Vital Sign Reading Time Taken Comments Blood Pressure 126/70 03/04/2018 8:45 AM CDT Pulse 73 03/04/2018 8:45 AM CDT Temperature - - Respiratory Rate - - Oxygen Saturation 97% 03/04/2018 8:45 AM CDT Inhaled Oxygen Concentration - - Weight 113 kg (249 lb 3.2 oz) 03/04/2018 8:45 AM CDT Height 177.8 cm (5' 10) 03/04/2018 8:45 AM CDT Body Mass Index 35.76 03/04/2018 8:45 AM CDT Plan of Treatment Not on file [place] [id number] [place] [address] Care Teams Elevator Attendant Relationship Specialty Start Date End Date Oneal Chance MD PCP - General Internal Medicine 03/04/18
--- OUTSIDE RECORDS SUMMARY | 2025-10-31 14:57 | XMS_ITS | Encounter Summary ---
Author Organization [facility] Address [address] [place] [address] Care Team Providers Care Esthetician Spa Name Role Phone Jay Livinsgton MD Unavailable Sorin Goode OD Unavailable [phone] Sorin Zuniga MD Unavailable [phone] Thomas Cota MD Primary Care Provider [phone] Encounter Details Date Type Department Care Team (Late st Contact Info) Description 08/03/2023 Gridle.int Message Enc [facility] Medical Group Family & Internal Medicine [facility] [address] [place] [address] [place] [address] [place] [address] Jardiance Social History Tobacco Use Types Packs/Day Years Used Date Smoking Tobacco: Former Cigarettes 1.5 15 0 11/15/1970 - 11/15/1985 Pipe Cigars Smokeless Tobacco: Never Alcohol Use Standard Drinks/Week [...] st Contact Info) Description 11/29/2025 9:20 AM GUT SORTER Office Visit [facility] Medical Group Family & Internal Medicine - [place] [address] [place] [address] [place] [address] [place] [address] 02/19/2026 9:45 AM CDT Office Visit [facility], [facility] [address] [place], [place] [address] Jay Livingston MD [facility]. [facility] [address] [place], [place] [address] documented as of this encounter Visit Diagnoses Not on filedocumented in this encounter Additional Health Concerns Assessment Noted Time PHQ-9 Depression Total Score: 2 01/07/20 22 8:25 AM GUT SORTER documented as of this encounter Care Teams Esthetician Spa Relationship Specialty [place] [address] [place], [place] [phone] PCP - General FAMILY PRACTICE 12/04/21 Jay Livingston MD [facility]. [facility] [address] [place], [place] [address] [place] Remote Mortgage Underwriter INTERVENTIONAL CARDIOLOGY 12/22/18 Sorin Godoe OD [address] [place] [address] Advanced Practice Provider Interlibrary Loan Services Librarian 04/01/21 Sorin Zuniga MD [address] [place] [address] Consulting Physician GASTROENTEROLOGY 04/01/21 documented as of this encounter
--- OUTSIDE RECORDS SUMMARY | 2025-10-31 14:57 | XMS_ITS | Encounter Summary ---
Author Organization [facility] Address [address] [place] [address] Care Team Providers Care Show Host/Hostess Name Role Phone Jay Livingston MD Unavailable Sorin Goode OD Unavailable [phone] Sorin Zuniga MD Unavailable [phone] Thomas Cota MD Primary Care Provider [phone] Encounter Details Date Type Department Care Team (Late st Contact Info) Description 08/31/2022 ReserveMyHome Message Enc [facility] [address] [place] [address] Cristina Romero, PT [address] [id number] shoulder pain Social History Tobacco Use Types Packs/Day Years [...] please move on to questions 3-9 0 09/03/2022 Education Answer Date Recorded What is the [...] Exposure Response Date Recorded In the last 10 days, have yo u been in contact with someone who was confirmed or suspected to have Coronavirus/COVID-19? No / Unsure 09/02/2022 8:41 AM CDT documented as of this encounter Plan of Treatment Upcoming Encounters Date Type Department Care Team (Late st Contact Info) Description 11/29/2025 9:20 AM MOTOR AND GENERATOR ASSEMBLER Office Visit [facility] Medical Group Family & Internal Medicine [facility] [address] [place] [address] Thomas Cota MD [address] [place] [id number] 02/19/2026 9:45 AM CDT Office Visit [place] [facility], [place] [address] [place], [place] [phone] Jay Livingston MD [facility]. [facility] [address] [place], [place] [phone] documented as of this encounter Visit Diagnoses Not on filedocumented in this encounter Additional Health Concerns Assessment Noted Time PHQ-9 Depression Total Score: 2 01/07/20 22 8:25 AM MOTOR AND GENERATOR ASSEMBLER documented as of this encounter Care Teams Show Host/Hostess Relationship Specialty [place] [address] [place], [place] [phone] PCP - General FAMILY PRACTICE 12/04/21 Jay Livingston MD [facility]. [facility] [address] [place] [address] [place] Aircraft Design Engineer INTERVENTIONAL CARDIOLOGY 12/22/18 Sorin Goode OD [address] [place] [address] Advanced Practice Provider Home Energy Auditor 04/01/21 Sorin Zuniga MD [address] [place] [address] Consulting Physician GASTROENTEROLOGY 04/01/21 documented as of this encounter
--- OUTSIDE RECORDS SUMMARY | 2025-10-31 14:57 | XMS_ITS | Encounter Summary ---
Author Organization [facility] Address [address] [place] [address] Care Team Providers Care Services Clerk Name Role Phone Jay Livingston MD Unavailable Sorin Goode OD Unavailable [phone] Sorin Zuniga MD Unavailable [phone] Thomas Cota MD Primary Care Provider [phone] Encounter Details Date Type Department Care Team (Late st Contact Info) Description 10/21/2025 [employer] Message Enc [facility] Medical Group Family & Internal Medicine [facility] [address] [place] [address] [place] Cota [place] [id number] [place] [address] Update Social History Tobacco Use Types Packs/Day Years [...] on file documented as of this encounter Progress Notes * Evelina Escobar RN - 10/22/2025 8:31 AM CST Printed for to advise. RVISOR MAPPING documented in this encounter Plan of Treatment Upcoming Encounters Date Type Department Care Team (Late st Contact Info) Description 11/29/2025 9:20 AM SUPERVISOR MAPPING Office Visit [facility] Medical Group Family & Internal Medicine [facility] [address] [place] [address] [place] [address] [place], [place] [address] 02/19/2026 9:45 AM CDT Office Visit [place] [facility], [facility] [address] [place], [place] [phone] Jay Livingston MD [facility]. [facility] [address] [place], [place] [phone] documented as of this encounter Visit Diagnoses Not on filedocumented in this encounter Additional Health Concerns Assessment Noted Time PHQ-9 Depression Total Score: 2 01/07/20 8:25 AM SUPERVISOR MAPPING documented as of this encounter Care Teams Services Clerk Relationship Specialty [place] [address] [place] [address] PCP - General FAMILY PRACTICE 12/04/21 Jay Livingston MD [facility] [address] [place] [address] [place] Image Scientist INTERVENTIONAL CARDIOLOGY 12/22/18 Sorin Goode OD [address] [place] [address] Advanced Practice Provider Prosthetic Lab Technician 04/01/21 Sorin Zuniga MD [address] [place] [address] Consulting Physician GASTROENTEROLOGY 04/01/21 documented as of this encounter
--- OUTSIDE RECORDS SUMMARY | 2025-10-31 14:57 | XMS_ITS | Encounter Summary ---
Author Organization [facility] Address [address] [place] [address] Care Team Providers Care College Instructor Name Role Phone Jay Livingston MD Unavailable Sorin Goode OD Unavailable [phone] Sorin Zuniga MD Unavailable [phone] Thomas Cota MD Primary Care Provider [phone] Encounter Details Date Type Department Care Team (Late st Contact Info) Description 06/19/2025 [employer] Message Enc [facility] Medical Group Family & Internal Medicine [facility] [address] [place] [address] Thomas Cota MD [id number] [place] [address] Surgeon referral Social History Tobacco Use Types Packs/Day Years [...] st Contact Info) Description 11/29/2025 9:20 AM PHARMACY SALES REPRESENTATIVE Office Visit [facility] Medical Group Family & Internal Medicine - [place] [address] [place] [address] [place] [address] [place], [place] [phone] 02/19/2026 9:45 AM CDT Office Visit [facility], [facility] [address] [place], [place] [address] Jay Livingston MD [facility]. [facility] [address] [place], [place] [phone] documented as of this encounter Visit Diagnoses Not on filedocumented in this encounter Additional Health Concerns Assessment Noted Time PHQ-9 Depression Total Score: 2 01/07/20 22 8:25 AM PHARMACY SALES REPRESENTATIVE documented as of this encounter Care Teams College Instructor Relationship Specialty [place] [address] [place], [place] [id number] PCP - General FAMILY PRACTICE 12/04/21 Jay Livingston MD [facility]. [facility] [address] [place], [place] [phone] [place] [employer] Pump Station Operator INTERVENTIONAL CARDIOLOGY 12/22/18 Sorin Goode OD [address] [place] [address] Advanced Practice Provider Collar Padder Blindstitch 04/01/21 Sorin Zuniga MD [address] [place] [address] Consulting Physician GASTROENTEROLOGY 04/01/21 documented as of this encounter
--- OUTSIDE RECORDS SUMMARY | 2025-10-31 14:57 | XMS_ITS | Encounter Summary ---
Author Organization [facility] Address [address] [place] [address] Care Team Providers Care Outsole Skiver Name Role Phone Jay Livingston MD Unavailable Sorin Goode OD Unavailable [phone] Sorin Zuniga MD Unavailable [phone] Thomas Cota MD Primary Care Provider [phone] Encounter Details Date Type Department Care Team (Late st Contact Info) Description 10/31/2025 Buzzoo Message Enc [facility] Medical Group Family & Internal Medicine [address] [address] [facility] Provider Completion of Needed Lab Social History Tobacco Use Types Packs/Day Years [...] st Contact Info) Description 11/29/2025 9:20 AM SIZE WORKER Office Visit [facility] Medical Group Family & Internal Medicine [facility] [address] [place] [address] [place] [address] [place] [address] 02/19/2026 9:45 AM CDT Office Visit [place] [facility], [facility] [address] [place], [place] [address] Jay Livingston MD [facility]. [facility] [address] [place], [place] [address] documented as of this encounter Visit Diagnoses Not on filedocumented in this encounter Additional Health Concerns Assessment Noted Time PHQ-9 Depression Total Score: 2 01/07/20 22 8:25 AM SIZE WORKER documented as of this encounter Care Teams Outsole Skiver Relationship Specialty [place] [address] [place] [address] PCP - General FAMILY PRACTICE 12/04/21 Jay Livingston MD [facility]. [facility] [address] [place], [place] [address] [place] Licensed Optician INTERVENTIONAL CARDIOLOGY 12/22/18 Sorin Goode OD [address] [place] [address] Advanced Practice Provider Second Grade Teacher 04/01/21 Sorin Zuniga MD [address] [place] [address] Consulting Physician GASTROENTEROLOGY 04/01/21 documented as of this encounter
--- OUTSIDE RECORDS SUMMARY | 2025-10-31 14:58 | XMS_ITS | Encounter Summary ---
Author Organization [facility] Address [address] [place] [address] Care Team Providers Care Senior Backup Administrator Name Role Phone Jay Livingston MD Unavailable Sorin Goode OD Unavailable [phone] Sorin Zuniga MD Unavailable [phone] Thomas Cota MD Primary Care Provider [phone] Encounter Details Date Type Department Care Team (Late st Contact Info) Description 11/10/2022 Monotype Imaging Holdingst Message Enc [facility] Medical Group Family & Internal Medicine [facility] [address] [place] [address] Thomas Cota [place] [id number] [place] [address] Refill Social History Tobacco Use Types Packs/Day Years [...] please move on to questions 3-9 0 10/09/2022 Education Answer Date Recorded What is the [...] suspected to have Coronavirus/COVID-19? No / Unsure 10/12/2022 11:49 AM DROP HAMMER SETTER UP documented as of this encounter Plan of Treatment Upcoming Encounters Date Type Department Care Team (Late st Contact Info) Description 11/29/2025 9:20 AM DROP HAMMER SETTER UP Office Visit [facility] Medical Group Family & Internal Medicine [facility] [address] [place] [address] [place] [address] [place], [place] [phone] 02/19/2026 9:45 AM CDT Office Visit [facility], [facility] [address] [place], [place] [phone] Jay Livingston MD [facility] [address] [place], [place] [phone] documented as of this encounter Visit Diagnoses Not on filedocumented in this encounter Additional Health Concerns Assessment Noted Time PHQ-9 Depression Total Score: 2 01/07/20 8:25 AM DROP HAMMER SETTER UP documented as of this encounter Care Teams Senior Backup Administrator Relationship Specialty [place] [address] [place], [place] [phone] PCP - General FAMILY PRACTICE 12/04/21 Jay Livingston MD [facility]. [facility] [address] [place] [address] [place] Encyclopedia Research Worker INTERVENTIONAL CARDIOLOGY 12/22/18 Sorin Goode OD [address] [place] [address] Advanced Practice Provider Signalling And Communications Engineer 04/01/21 Sorin Zuniga MD [address] [place] [address] Consulting Physician GASTROENTEROLOGY 04/01/21 documented as of this encounter
--- OUTSIDE RECORDS SUMMARY | 2025-10-31 14:58 | XMS_ITS | Encounter Summary ---
Author Organization [facility] Address [address] [place] [address] Care Team Providers Care Superintendent Plant Protection Name Role Phone Jay Livingston MD Unavailable Sorin Goode OD Unavailable [phone] Sorin Zuniga MD Unavailable [phone] Thomas Cota MD Primary Care Provider [phone] Encounter Details Date Type Department Care Team (Late st Contact Info) Description 11/26/2022 Cartilixt Message Enc [facility] Medical Group Family & Internal Medicine [facility] [address] [place] [address] Thomas Cota [place] [id number] [place] [address] NEED A SCRIPT Social History Tobacco Use Types Packs/Day Years [...] st Contact Info) Description 11/29/2025 9:20 AM MANAGER COMPLETIONS Office Visit [facility] Medical Group Family & Internal Medicine [facility] [address] [place] [address] [place] [address] [place], [place] [id number] 02/19/2026 9:45 AM CDT Office Visit [place] [facility], [place] [address] [place], [place] [address] Jay Livingston MD [facility]. [facility] [address] [place], [place] [address] documented as of this encounter Visit Diagnoses Not on filedocumented in this encounter Additional Health Concerns Assessment Noted Time PHQ-9 Depression Total Score: 2 01/07/20 8:25 AM MANAGER COMPLETIONS documented as of this encounter Care Teams Superintendent Plant Protection Relationship Specialty [place] [address] [place], [place] [phone] PCP - General FAMILY PRACTICE 12/04/21 Jay Livingston MD [facility]. [facility] [address] [place], [place] [address] [place] Wildlife Control Agent INTERVENTIONAL CARDIOLOGY 12/22/18 Sorin Goode OD [address] [place] [address] Advanced Practice Provider Script Reader 04/01/21 Sroin Zuniga MD [address] [place] [address] Consulting Physician GASTROENTEROLOGY 04/01/21 documented as of this encounter
--- OUTSIDE RECORDS SUMMARY | 2025-10-31 14:58 | XMS_ITS | Encounter Summary ---
Author Organization [facility] Address [address] [place] [id number] Care Team Providers Care Senior Functional Analyst Name Role Phone Jay Livingston MD Unavailable Sorin Goode OD Unavailable [phone] Sorin Zuniga MD Unavailable [phone] Thomas Cota MD Primary Care Provider [phone] Encounter Details Date Type Department Care Team (Late st Contact Info) Description 08/19/2022 Ultimate Softwaret Message Enc [facility] Family & Internal Medicine [facility] [id number] [place] [id number] [place] Cota [place] [id number] [place] [id number] Visit with Lani Social History Tobacco Use Types Packs/Day Years Used Date Smoking Tobacco: Former Cigarettes Q uit: 1986 Smokeless Tobacco: Never Alcohol Use Standard Drinks/Week [...] 3, please move on to questions 3-9 2 07/07/2022 Education Answer Date Recorded What is the [...] suspected to have Coronavirus/COVID-19? No / Unsure 08/14/2022 9:22 AM CDT documented as of this encounter Plan of Treatment Upcoming Encounters Date Type Department Care Team (Late st Contact Info) Description 11/29/2025 9:20 AM FACIAL OPERATOR Office Visit [facility] Family & Internal Medicine [facility] [address] [place] [address] [place] [address] [place], [place] [id number] 02/19/2026 9:45 AM CDT Office Visit [facility] [address] [place], [place] [id number] Jay Livingston MD [facility] [address] [place], [place] [phone] documented as of this encounter Visit Diagnoses Not on filedocumented in this encounter Additional Health Concerns Assessment Noted Time PHQ-9 Depression Total Score: 2 01/07/20 22 8:25 AM FACIAL OPERATOR documented as of this encounter Care Teams Senior Functional Analyst Relationship Specialty [place] [address] [place] [address] PCP - General FAMILY PRACTICE 12/04/21 Jay Livingston MD [facility] [address] [place] [address] [place] Oracle Database Manager INTERVENTIONAL CARDIOLOGY 12/22/18 Sorin Goode OD [address] [place] [address] Advanced Practice Provider Sh[employer]er 04/01/21 Sorin Zuniga MD [address] [place] [address] Consulting Physician GASTROENTEROLOGY 04/01/21 documented as of this encounter
== END 2025-10-31 13:01 | disposition home or self-care (01) ==
PROVIDERS: PCP Family Medicine; Visit Provider Orthopaedic Surgery
DX: G56.03 Carpal tunnel syndrome, bilateral upper limbs (principal)
CPT/HCPCS: 95886; 95911